=== PATIENT | female | born 1975 | race Caucasian/White ===

== ENCOUNTER 2016-10-09 14:19 | Emergency (ER) | payer OTHER ==
[2016-10-09] MEDS ORDERED: IBUPROFEN 400 MG TABLET PO STA (15:35)
[2016-10-09] MEDS ORDERED: guaiFENesin/DEXTROMETHORPHAN 10 ML UDC PO STA (15:35)
[2016-10-09] MEDS ORDERED: BENZONATATE 100 MG CAPSULE PO STA (15:36)
[2016-10-09] MEDS ORDERED: BENZONATATE 100 MG CAPSULE PO ONE (15:45)
[2016-10-09] MEDS ORDERED: IBUPROFEN 400 MG TABLET PO ONE (15:45)
== END 2016-10-09 17:56 | disposition home or self-care (01) ==
DX: J11.1 Influenza due to unidentified influenza virus with other respiratory manifestations (principal)
CPT/HCPCS: 71020; 87070; 87430; 99283; A9270

== ENCOUNTER 2017-02-16 09:35 | Outpatient (CLI) | payer OTHER ==
--- NOTE | 2017-03-07 14:14 | Mammography Report ---
DIGITAL SCREENING MAMMOGRAM: 02/16/2017 CLINICAL INDICATION: A 41-year-old with history of benign right biopsy for screening. The patient's previous mammograms from [place], [place] have not yet arrived. Report of previou s mammogram dated 08/30/2011 is available. TECHNIQUE: Routine CC and MLO projections were obtained of the breasts as well as bilateral laterall y exaggerated craniocaudal views. FINDINGS: The breasts demonstrate heterogeneously dense fibroglandular parenchyma bilaterally. A fe w coarse, typically benign calcifications are present. No suspicious masses, clustered microcalcific ations, or regions of architectural distortion are identified. IMPRESSION: BENIGN FINDINGS. RECOMMENDATION: Routine annual screening unless otherwise clinically indicated. BI-RADS category 2, benign findings. STANDARD QUALIFYING STATEMENTS 1. This examination was reviewed with the aid of Computer-Aided Detection (CAD). 2. A negative or benign imaging report should not delay biopsy if clinically suspicious findings are present. Consider surgical consultation if warranted. More than 5% of cancers are not identified by i maging. 3. Dense breasts may obscure an underlying neoplasm. JOB #: [id number] EXT JOB #:[id number]
== END 2017-02-16 09:36 | disposition home or self-care (01) ==
LOC: DI 09:35
PROVIDERS: ATTEND Physician Assistant Medical
DX: Z12.31 Encounter for screening mammogram for malignant neoplasm of breast (principal)
CPT/HCPCS: 77067

== ENCOUNTER 2017-03-28 16:44 | Outpatient (CLI) | payer OTHER ==
--- NOTE | 2017-03-29 10:44 | Ultrasound Report ---
PELVIC ULTRASOUND: 03/28/2017 CLINICAL HISTORY: A 41-year-old female with abdominal bloating. TECHNIQUE: Transabdominal pelvic ultrasound performed for global evaluation. Transvaginal pelvic ultrasound performed for detailed evaluation. Real-time scanning performed and static images obtained. FINDINGS: The uterus measures 9.6 x 3.9 x 6.7 cm for a volume of 131 cc. Endometrial echo complex is 2.5 mm. Small nabothian cysts are noted. There is a small cyst within the posterior aspect of the myometrium of the body of the uterus. This measures a few millimeters in diameter. This may be an indication of adenomyosis. Right ovary measures 4 x 1 x 2.2 cm for a volume of 4.6 cc. Left ovary measures 3.5 x 1.9 x 3.2 cm for a volume of 11.1 cc. Left adnexa demonstrates a small cyst. This cyst has a benign appearance. It measures 1.2 x 1.1 x 1.2 cm. It may represent a paraovarian cyst or a peritoneal cyst. Each of these are of benign etiology. IMPRESSION: 1. UTERUS IS OF NORMAL SIZE AND HAS A NORMAL CENTRAL INTRAUTERINE CAVITY DIAMETER. THERE IS A TINY CYST WITHIN THE MYOMETRIUM OF THE BODY OF THE UTERUS. THIS CAN BE AN INDICATION OF ADENOMYOSIS. 2. NORMAL OVARIES BILATERALLY. 3. A 1.2 X 1.1 X 1.2 CM LEFT ADNEXAL CYST SEPARATE FROM THE LEFT OVARY. THIS MAY REPRESENT A BENIGN LEFT PARAOVARIAN CYST VERSUS A BENIGN PERITONEAL CYST. JOB #: [id number] EXT JOB #: [id number] [facility]
== END 2017-03-28 16:45 | disposition home or self-care (01) ==
LOC: DI 16:44
PROVIDERS: ATTEND Physician Assistant Medical
DX: N85.8 Other specified noninflammatory disorders of uterus (principal); N94.89 Other specified conditions associated with female genital organs and menstrual cycle
CPT/HCPCS: 76830; 76856

== ENCOUNTER 2017-04-07 06:01 | Outpatient (CLI) | payer OTHER ==
[2017-04-07] MEDS ORDERED: IOPAMIDOL-300 50 ML VIAL PO ONE (07:25)
[2017-04-07] MEDS ORDERED: IOPAMIDOL-300 100 ML VIAL IVP ONE (07:25)
--- NOTE | 2017-04-07 08:18 | CT Preliminary Report ---
Exam: CT Abdomen/Pelvis W/ IMPRESSION: 1. Nonobstructing right renal stone with underlying scarring. 2. Tiny pleural effusions. 3. Dominant left ovarian follicle. 4. Other incidental or chronic findings. [facility] SITE ID: [id number]
--- NOTE | 2017-04-07 08:20 | CT Report ---
EXAM: CT ABDOMEN AND PELVIS EXAM DATE: 04/07/2017 07:25 AM. CLINICAL HISTORY: ABDOMINAL PAIN, LLQ. COMPARISONS: 12/19/2008. TECHNIQUE: Routine helical CT imaging was performed through the abdomen and pelvis. IV contrast: 100 cc Isovue-300. Enteric contrast: Yes. Reconstructions: Coronal and sagittal. In accordance with CT protocol optimization, one or more of the following dose reduction techniques w ere utilized for this exam: automated exposure control, adjustment of mA and/or KV based on patient s ize, or use of iterative reconstructive technique. FINDINGS: Lung Bases: Tiny pleural effusions, right more than left. Otherwise clear. Liver: Normal. No masses. Gallbladder/Bile Ducts: Unremarkable. Spleen: Normal. Pancreas: Normal. Adrenal Glands: Normal. Kidneys: Mild bilateral lobulation. Small cysts on the right. Nonobstructing right upper pole stone m easuring 6 mm with underlying scarring. No hydronephrosis. Peritoneal Cavity/Bowel: Normal. No free fluid, free air or adenopathy. No masses or acute inflammato ry process. The appendix is well visualized and normal. Pelvic Organs: Unremarkable urinary bladder and uterus. Left ovarian dominant follicle measuring 1.8 cm. Collapsing right ovarian follicle measuring 0.8 cm. Vasculature: No aneurysms or other significant abnormality. Bones: No significant abnormality. Other: None. IMPRESSION: 1. Nonobstructing right renal stone with underlying scarring. 2. Tiny pleural effusions. 3. Dominant left ovarian follicle. 4. Other incidental or chronic findings. [facility] Referring Provider Line: [phone] SITE ID: [id number]
== END 2017-04-07 06:02 | disposition home or self-care (01) ==
LOC: DI 06:01
PROVIDERS: ATTEND Physician Assistant Medical
DX: N20.0 Calculus of kidney (principal); J90 Pleural effusion, not elsewhere classified
CPT/HCPCS: 74177; Q9967

== ENCOUNTER 2018-03-12 08:00 | Outpatient (CLI) | payer OTHER | END 2018-03-12 08:01 | disposition home or self-care (01) | LOC: LAB.R 08:00 | PROVIDERS: ATTEND Physician Assistant Medical | DX: R35.0 Frequency of micturition (principal) | CPT/HCPCS: 87086 ==

== ENCOUNTER 2018-09-10 15:41 | Emergency (ER) | payer OTHER ==
[2018-09-10 15:56] VITALS: BP 123/82
[2018-09-10] MEDS ORDERED: BACITRACIN OINT TOP STA (16:32)
[2018-09-10] MEDS ORDERED: NAPROXEN 250 MG TABLET PO STA (16:32)
--- NOTE | 2018-09-10 16:35 | ED Physician Documentation ---
PD HPI SKIN - Stated complaint Stated Complaint: SUPERGLUED THUMB - Chief complaint Chief Complaint: Wound - Additional information Additional information: 42-year-old female presents the emergency department for evaluation of superglue to her right thumb. The patient super glued her finger to a reindeer. The patient extract the reindeer and there is residual superglue and irritation to the volar pad of the thumb. No other injury. Symptoms are described as mild. Review of Systems Constitutional: denies: Fever Eyes: denies: Discharge Ears: denies: Ear pain Skin: reports: Abrasion (s). 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: Other - Present Medications Home Medications: Ambulatory Orders Medication Instructions Recorded Confirmed Citalopram [CeleXA] 40 mg PO QPM 06/15/15 03/05/16 clonazePAM [KlonoPIN] 0.5 mg PO DAILY 03/05/16 03/05/16 Benzonatate [Tessalon] 100 mg PO TID PRN #20 capsule 10/09/16 Topiramate [Topamax] 100 mg PO 10/09/16 10/09/16 guaiFENesin/CODEINE [Robitussin AC] 5 - 10 ml PO Q6H PRN #120 udc 10/09/16 - Allergies Allergies/Adverse Reactions: Allergies Allergy/AdvReac Type Severity Reaction Status Date / Time gatifloxacin [From Tequin] Allergy Hives Verified 03/05/16 09:30 - Social History Does the pt smoke?: No Smoking Status: Never smoker Does the pt drink ETOH?: Yes Does the pt have substance abuse?: No - Immunizations Immunizations are current?: Yes - POLST Patient has POLST: No PD ED PE NORMAL - General General: Alert and oriented X 3, No acute distress - HEENT HEENT: Atraumatic, PERRL, EOMI - Derm Derm: Normal color, Warm and dry, Other (The patient has irritation to the volar pad of the right thumb, there is some mild blistering and erythema. There is residual skin glue.) - Extremities Extremities: No deformity, Normal ROM s pain - Neuro Neuro: Alert and oriented X 3, No motor deficit, Normal speech Results - Vitals Vitals: Vital Signs - 24 hr 09/10/18 15:54 Temperature 36.8 C Heart Rate 77 Respiratory 16 Rate Blood Pressure 123/82 H O2 Saturation 97 Oxygen O2 Source Room air PD MEDICAL DECISION MAKING - ED course ED course: The patient has had a chemical burn which is superficial from the superglue. This can be managed conservatively as an outpatient with bacitracin and wound care. The patient appears appropriate for discharge. This was discussed with the patient and she understands and agrees. I discussed warning signs and recommended returning for any worsening or concerns. Departure - Departure Disposition: 01 Home, Self Care Clinical Impression: Superficial burn Condition: Good Instructions: ED Burn Chemical Follow-Up: Hellen Kelly PA-C [Primary Care Provider] - Within 1 week Comments: Please return to the emergency department for worsening symptoms or any concerns
== END 2018-09-10 16:30 | disposition home or self-care (01) ==
LOC: ED 15:41
DX: T52.8X1A Toxic effect of other organic solvents, accidental (unintentional), initial encounter (principal); T23.611A Corrosion of second degree of right thumb (nail), initial encounter; T32.0 Corrosions involving less than 10% of body surface; Y93.89 Activity, other specified
CPT/HCPCS: 99281; 99283; A9270

== ENCOUNTER 2019-01-21 21:45 | Outpatient (CLI) | payer OTHER ==
--- NOTE | 2019-01-22 10:05 | Ultrasound Report ---
Reason: VAGINAL BLEEDING, ABNORMAL Procedure Date: 01/21/2019 Accession Number: [id number] / [id number] Procedure: US - Pelvic w/Transvaginal CPT Code: FULL RESULT: EXAM: PELVIC ULTRASOUND EXAM DATE: 01/21/2019 11:20 PM. CLINICAL HISTORY: Severe menorrhagia COMPARISON: PELVIC W/TRANSVAGINAL 03/28/2017 5:20 PM. TECHNIQUE: Realtime transabdominal pelvic scan performed to identify the uterus and adnexa and as an overview of other pelvic structures, followed by transvaginal scan to provide greater detail of the uterus and adnexa, with static image documentation. FINDINGS: Uterus: 9.4 x 6.7 x 5.3 cm, volume cc. Anteverted position. Normal overall size and echotexture. Masses: There are at least 3 uterine fibroids most likely intramural. The largest of these fibroids measures 16 mm maximal diameter. No definite submucosal fibroid. Endometrium: 8.2 mm. No intraluminal mass. Cervix: Unremarkable. Right Ovary: 3.0 x 2.0 x 1.7 cm, volume 5.3 cc. Normal echotexture and blood flow. No solid mass. Left Ovary: 3.1 x 3.0 x 2.2 cm, volume 10.7 cc. Normal echotexture and blood flow. Dominant ovarian follicle measures 13 mm maximal diameter. There is an exophytic left ovarian cyst measuring 15 mm maximal diameter. No solid mass. Free Fluid: None. Other: None. IMPRESSION: 1. There are at least 3 small intramural fibroids the largest of which measures 16 mm maximal diameter. The uterus and endometrium are otherwise unremarkable. 2. Multiple small bilateral follicles as described above. 3. There is a benign-appearing exophytic left ovarian cyst measuring 15 mm maximal diameter. 4. No suspicious or solid adnexal mass. [facility]
== END 2019-01-21 21:46 | disposition home or self-care (01) ==
LOC: DI 21:45
PROVIDERS: ATTEND Physician Assistant
DX: N93.9 Abnormal uterine and vaginal bleeding, unspecified (principal); D25.1 Intramural leiomyoma of uterus; N83.202 Unspecified ovarian cyst, left side
CPT/HCPCS: 76830; 76856

== ENCOUNTER 2019-01-30 13:43 | Outpatient (CLI) | payer OTHER ==
[2019-01-30 19:43] LABS: BASOPHILS # (AUTO) 0.1 10^3/uL (0.0-0.1); BASOPHILS % (AUTO) 0.9 %; EOSINOPHILS # (AUTO) 0.2 10^3/uL (0.0-0.7); EOSINOPHILS % (AUTO) 2.7 %; HGB - HEMOGLOBIN 13.5 g/dL (12.0-16.0); LYMPHOCYTES # (AUTO) 1.8 10^3/uL (1.5-3.5); LYMPHOCYTES % (AUTO) 31.3 %; MEAN CORPUSCULAR HEMOGLOBIN 29.4 pg (27.0-31.0); MEAN CORPUSCULAR HGB CONC 33.6 g/dL (32.0-36.0); MEAN CORPUSCULAR VOLUME 87.5 fL (81.0-99.0); MEAN PLATELET VOLUME 8.1 fL (7.9-10.8); MONOCYTES # (AUTO) 0.3 10^3/uL (0.0-1.0); MONOCYTES % (AUTO) 5.5 %; NEUTROPHILS # (AUTO) 3.5 10^3/uL (1.5-6.6); NEUTROPHILS % (AUTO) 59.6 %; PLT - PLATELET COUNT 261 10^3/uL (130-450); RED BLOOD COUNT 4.59 10^6/uL (4.20-5.40); RED CELL DISTRIBUTION WIDTH 13.9 % (12.0-15.0); WHITE BLOOD COUNT 5.9 x10^3/uL (4.8-10.8)
[2019-01-30 20:20] LABS: ALBUMIN 4.4 g/dL (3.2-5.5); ALBUMIN/GLOBULIN RATIO 1.5 (1.0-2.2); BILIRUBIN,TOTAL 0.5 mg/dL (0.2-1.0); CALCIUM 9.3 mg/dL (8.5-10.3); CREATININE 0.8 mg/dL (0.4-1.0); TOTAL PROTEIN 7.3 g/dL (6.7-8.2)
== END 2019-01-30 13:44 | disposition home or self-care (01) ==
LOC: LAB.WCP 13:43
PROVIDERS: ATTEND Physician Assistant Medical
DX: N93.9 Abnormal uterine and vaginal bleeding, unspecified (principal)
CPT/HCPCS: 36415; 80050